=== PATIENT | female | born 1960 | race Caucasian/White ===

== ENCOUNTER 2019-06-16 15:25 | Inpatient (IN) ==
[2019-06-16] MEDS ORDERED: MORPHINE 4 MG/ML VIAL IVP STA (15:35)
[2019-06-16] MEDS ORDERED: ZOFRAN 4 MG/2 ML IVP STA (15:35)
--- NOTE | 2019-06-16 16:24 | DI ---
EXAM: CHEST FRONTAL AND LATERAL VIEWS HISTORY: Cough. COMPARISON: 12/08/2013 FINDINGS: Heart size and mediastinal contour remain within normal limits. No acute infiltrates. Normal vascularity with no pleural fluid or pneumothorax. The bony thorax has no acute finding. IMPRESSION: No current convincing evidence of pneumonia.
--- NOTE | 2019-06-16 16:29 | US ---
EXAM: Ultrasound abdomen limited right upper quadrant HISTORY: Abdominal pain, nausea, vomiting COMPARISON: None TECHNIQUE: Limited ultrasound abdomen right upper quadrant was performed FINDINGS: Visualized portion pancreas appears normal. Portions of the pancreas obscured secondary b owel gas shadowing. Liver normal in size and echogenicity. Main portal vein patent with normal dire ction of flow. No shadowing gallstones. No gallbladder wall thickening. No pericholecystic fluid. No biliary duct dilation with common bile duct measuring 0.3 cm. IMPRESSION: No abnormality identified in the liver, gallbladder, or biliary system.
--- NOTE | 2019-06-16 16:35 | CT ---
EXAM: CT abdomen pelvis without contra HISTORY: Abdominal pain COMPARISON: None TECHNIQUE: CT abdomen pelvis performed without intravenous contrast. Coronal and sagittal reformatt ed images obtained. FINDINGS: Mild bibasilar subsegmental atelectasis and/or scarring. No free air. No acute abnormali ties of the bones. Interbody spacer [id number]. Multilevel chronic discogenic degenerative disease with multifocal endplate sclerosis that is likely degenerative. Heart normal in size. Bilateral breast i mplants are incompletely imaged. Evaluation organ parenchyma limited without contrast. Liver unrema rkable. Gallbladder unremarkable. Calcifications in the pancreatic head region. Peripancreatic inf lammation. No focal drainable collection. Spleen unremarkable. Adrenals unremarkable. No hydronep hrosis or nephrolithiasis. No calculi visualized in normal course of the ureters. Bladder unremarka ble. Aorta normal in caliber. Mild atherosclerosis. 5.2 cm cystic lesion in the left adnexa. Smal l hiatal hernia. No dilated loops small bowel. Appendix appears normal. Colon unremarkable. IMPRESSION: 1. Acute on chronic pancreatitis. No focal drainable collection. 2. Unexpected findin.2 cm cystic lesion in the left ovary/adnexa. This is suspicious for ovari an neoplasm in a patient of this age. Recommend correlation with transabdominal and transvaginal pel wilfrid ultrasound as next step in evaluation
--- NOTE | 2019-06-16 16:54 | ED.PDOC ---
General ED Provider: Dr. ONDINA MILLER Chief Complaint: Abdominal Pain Stated Complaint: epigastric abdominal Time Seen by Physician: 15:30 Mode of Arrival: Ambulance Information Source: Patient Exam Limitations: No limitations Primary Care Provider: JESUS WALDEN Nursing and Triage Documentation Reviewed and Agree: Yes Does patient meet sepsis criteria?: No System Inflammatory Response Syndrome: Not Applicable Sepsis Protocol: For patient's 13 years and over: Temp is 96.8 and below OR 101 and greater Pulse >90 BPM Resp >20/minute Acutely Altered Mental Status Are patient's symptoms suggestive of a new infection, such as: -Pneumonia -Skin, Soft Tissue -Endocarditis -UTI -Bone, Joint Infection -Implantable Device -Acute Abdominal Infection -Wound Infection -Meningitis -Blood Stream Catheter Infection -Unknown GI Complaint Exam Abdominal Pain Complaint/Exam Onset: Gradual Duration: 1 DAY Symptoms Are: Still present Timing: Constant Initial Severity: Moderate Current Severity: Moderate Location of Pain: RUQ and Epigastric Radiates To: Denies Chest, Back, Flank, LLQ, RLQ and Inguinal Character: Reports Cramping Aggravating: Reports None Alleviating: Reports None and Medication (MORPHINE); Denies Spontaneous resolution and Vomiting Associated Signs and Symptoms: Reports Nausea and Vomiting; Denies Fever, Cough, Chest pain, Dizziness, Back pain and Constipation Ovarian Torsion Risk Factors: Reports Ovarian cysts (POSSIBLE NEOPLASM) Surgical Obstruction Risk Factors: Reports None Related Surgical History: Reports None Patient Rh Status: Unknown Abdominal Findings: Present Other (PAIN) Differential Diagnoses: Appendicitis, Diverticulitis, Pancreatitis, Irritable Bowel Syndrome, Pneumonia and Renal Colic Quality Indicators for AMI: EKG in 10min. Quality Indicators for Cardiac Chest Pain: EKG in 10min. Quality Indicator For Non-Traumatic Chest Pain/Syncope: EKG Performed Review of Systems Review Of Systems Constitutional: Reports No symptoms Eyes: Reports No symptoms Ears, Nose, Mouth, Throat: Reports No symptoms Respiratory: Reports No symptoms Cardiac: Reports No symptoms GI: Reports Abdominal pain, Poor appetite and Vomiting : Reports No symptoms Musculoskeletal: Reports No symptoms Skin: Reports No symptoms Neurological: Reports No symptoms Endocrine: Reports No symptoms Hematologic/Lymphatic: Reports No symptoms All Other Systems: Reviewed and Negative [facility] Medical History (Updated 06/16/19 @ 17:14 by ONDINA MILLER MD) Hypertension Social History (Updated 06/16/19 @ 16:24 by ROXY LEE RN) Smoking and tobacco status: Current every day smoker Tobacco type: cigarettes Smoking packs per day: 6 Smoking cigarettes per day: 120.0 Alcohol intake: current Alcohol intake frequency: a few times a week Physical Exam Physical Exam Appearance: Ill-appearing GI/: No masses (TENDER EPIGASTRIC) Interpretation Radiology Interpretation Radiology Interpretation By: Radiologist Radiology Results: Positive (PANCRATITIS, OVARAIAN MASS ) Physician Notification Case Discussed Physician Notified: PMD Time of Notification: 17:13 (ADMITT/NPO) Critical Care Note Critical Care Note Total Time (mins): 0 Course Course Hematology/Chemistry: 06/16/19 15:20 06/16/19 15:20 Orders, Labs, Meds: Lab Review 06/16/19 06/16/19 15:20 15:20 WBC 10.91 H RBC 4.03 L Hgb 14.2 Hct 40.4 MCV 100.2 H MCH 35.2 H MCHC 35.1 RDW Coeff of Briseyda 12.8 Plt Count 324 Immature Gran % (Auto) 0.3 Neut % (Auto) 84.5 Lymph % (Auto) 10.1 Den[place] % (Auto) 4.4 Eos % (Auto) 0.4 Baso % (Auto) 0.3 Immature Gran # (Auto) 0.0 Neut # (Auto) 9.2 H Lymph # (Auto) 1.1 Den[place] # (Auto) 0.5 Eos # (Auto) 0.0 Baso # (Auto) 0.0 Sodium 133.6 L Potassium 3.24 L Chloride 96.0 L Carbon Dioxide 27.3 Anion Gap 13.54 BUN 13.0 Creatinine 0.70 Estimated GFR (MDRD) 86.00 BUN/Creatinine Ratio 18.57 Glucose 116.3 H Calcium 9.95 Total Bilirubin 0.85 AST 27.6 ALT 18.2 Alkaline Phosphatase 72.8 Total Creatine Kinase 31.4 Troponin I < 0.012 Total Protein 8.12 Albumin 4.52 Globulin 3.60 Albumin/Globulin Ratio 1.25 Amylase 2979.2 H* Orders Category Date Time Status EKG-(ED ONLY) Stat CARDIO 06/16/19 15:34 Completed ACTIVITY .BR with BRP CARE 06/16/19 17:07 Ordered INTAKE & OUTPUT Q8HR CARE 06/16/19 17:07 Ordered NPO REMINDER: IMAGING ONCE CARE 06/16/19 15:33 Active NPO REMINDER: LAB TEST ONCE CARE 06/16/19 16:53 Active VITAL SIGNS Q4HR CARE 06/16/19 17:07 Ordered NOTHING BY MOUTH DIETARY 06/16/19 Dinner Ordered ED NEUROLOGICAL CHECKS .ONCE EMERGENCY 06/16/19 17:02 Ordered AMYLASE Stat LAB 06/16/19 15:20 Completed CBC W/ AUTO DIFF DAILY@0600 LAB 06/17/19 06:00 Ordered CBC W/ AUTO DIFF DAILY@0600 LAB 06/18/19 06:00 Ordered CBC W/ AUTO DIFF Stat LAB 06/16/19 15:20 Completed COMPREHENSIVE METABOLIC PANEL DAILY@0600 LAB 06/17/19 06:00 Ordered COMPREHENSIVE METABOLIC PANEL DAILY@0600 LAB 06/18/19 06:00 Ordered COMPREHENSIVE METABOLIC PANEL Stat LAB 06/16/19 15:20 Completed CREATINE KINASE Stat LAB 06/16/19 15:20 Completed LIPASE Stat LAB 06/16/19 17:06 Ordered LIPID PANEL Stat LAB 06/16/19 15:20 Received TROPONIN I Stat LAB 06/16/19 15:20 Completed URINALYSIS C & S IF INDICATED Stat LAB 06/16/19 15:34 Uncollected BANANA NS WITH 20KCL@125 MLS/HR(1,011.2ml) MEDS 06/16/19 17:00 Ordered Potassium Chloride in 0.9%NaCl [Sodium Chloride 0.9%- KCl 20 Meq] 1,000 ml Folic Acid 1 mg Vitamin B-1 Inj [Thiamine] 100 mg Mvi, Adult No.1 with Vit K [Infuvite Adult] 10 ml IV 125 mls/hr Citalopram Hydrobromide [Celexa] MEDS 06/17/19 09:00 Ordered 20 mg PO DAILY Clonazepam [Klonopin] MEDS 06/17/19 09:00 Ordered 1 mg PO DAILY Diazepam [Valium] MEDS 06/16/19 17:00 Stat 5 mg PO ONCE STA Diazepam [Valium] MEDS 06/16/19 17:00 Ordered 5 mg PO Q8H PRN Ipratropium/Albuterol Sulfate [Combivent Respimat Inhal MEDS 06/16/19 21:00 Ordered [place]] 4 gm IH QID Morphine Sulfate [Morphine 2 mg/ml Syringe] MEDS 06/16/19 17:05 Ordered 2 mg IVP Q6H PRN Morphine Sulfate [Morphine 4 mg/ml Vial] MEDS 06/16/19 15:35 Discontinued 4 mg IVP ONCE STA Ondansetron HCl/Pf [Zofran 4 mg/2 ml] MEDS 06/16/19 15:35 Discontinued 4 mg IVP ONCE STA Ondansetron HCl/Pf [Zofran 4 mg/2 ml] MEDS 06/16/19 17:05 Ordered 4 mg IVP Q6H PRN Trazodone HCl [Desyrel] MEDS 06/16/19 21:00 Ordered 150 mg PO BEDTIME lisinopril-hydrochlorothiazide [Zestoretic] MEDS 06/17/19 09:00 Ordered 1 tab PO DAILY CHEST, 2 VIEWS PA & LAT Stat RADS 06/16/19 15:[address] ABDOMEN/PELVIS WO CONTRAST Stat RADS 06/16/19 15:36 Completed U/S ABDOMEN, RT. UPPER QUAD Stat RADS 06/16/19 15:33 Completed Medications Generic Name Dose Route Start Last Admin Trade Name Freq PRN Reason Stop Dose Admin Albuterol/Ipratropium spray 06/16/19 21:00 Combivent Respimat Inhal [place] IH QID ASHELY Citalopram Hydrobromide 20 mg 06/17/19 09:00 Celexa PO DAILY ASHELY Clonazepam 1 mg 06/17/19 09:00 Klonopin PO DAILY ASHELY Diazepam 5 mg 06/16/19 17:00 Valium PO Q8H PRN Anxiety Folic Acid 1 mg/ Thiamine HCl 1,011.2 mls @ 125 mls/hr 06/16/19 17:00 100 mg/ Multivitamins/Minerals IV 10 ml/ Potassium Chloride/ .Q8H6M ASHELY Sodium Chloride Morphine Sulfate 2 mg 06/16/19 17:05 Morphine 2 Mg/Ml Syringe IVP Q6H PRN Pain Non-Formulary Medication 1 tab 06/17/19 09:00 Lisinopril-Hydrochlorothiazide [Zestoretic] PO DAILY ASHELY Ondansetron HCl 4 mg 06/16/19 17:05 Zofran 4 Mg/2 Ml IVP Q6H PRN Nausea / Vomiting Trazodone HCl 150 mg 06/16/19 21:00 Desyrel PO BEDTIME ASHELY Discontinued Medications Generic Name Dose Route Start Last Admin Trade Name Freq PRN Reason Stop Dose Admin Diazepam 5 mg 06/16/19 17:00 Valium PO 06/16/19 17:01 ONCE STA Morphine Sulfate 4 mg 06/16/19 15:35 06/16/19 15:48 Morphine 4 Mg/Ml Vial IVP 06/16/19 15:36 4 mg ONCE STA Administration Ondansetron HCl 4 mg 06/16/19 15:35 06/16/19 15:48 Zofran 4 Mg/2 Ml IVP 06/16/19 15:36 4 mg ONCE STA Administration Vital Signs: Temp Pulse Resp BP Pulse Ox 06/16/19 15:26 97.2 F L 51 L 16 122/63 98 Discharge Plan Discharge Patient Disposition: ADMITTED INPATIENT Discharge Problem: Abdominal pain, Acute pancreatitis Prescriptions: No Action clonazepam [Klonopin] 1 MG tablet 1 mg PO DAILY RF: 0 fexofenadine [Pita Allergy] 180 MG tablet 180 mg PO DAILY RF: 0 hydrocortisone acetate [Anusol-HC] 25 MG suppository 25 mg [place] PRN PRN (Reason: hemmoriod) RF: 0 citalopram 20 MG tablet 20 mg PO DAILY RF: 0 esomeprazole magnesium [Nexium] 40 MG capsule,delayed release(DR/EC) 40 mg PO DAILY RF: 0 lisinopril-hydrochlorothiazide [Zestoretic] 1 EACH tablet 1 tab PO DAILY RF: 0 epinephrine [EpiPen 2-[place]] 0.3 MG/0.3 ML auto-injector 0.3 mg IM PRN PRN (Reason: Anaphylaxis) RF: 0 rosuvastatin [Crestor] 10 MG tablet 10 mg PO DAILY RF: 0 B-100 Complex 100 MG tablet extended release 100 mg IM MONTHLY PRN (Reason: anemia) RF: 0 Combivent Respimat 4 GM mist 4 g inhalation QID RF: 0 trazodone 150 mg Tablet 150 mg PO BEDTIME RF: 0 ED Provider: ONDINA MILLER Condition: Good
[2019-06-16] MEDS ORDERED: VALIUM PO PRN (17:00)
[2019-06-16] MEDS ORDERED: VALIUM PO STA (17:00)
[2019-06-16] MEDS ORDERED: MORPHINE 2 MG/ML SYRINGE IVP PRN (17:05)
[2019-06-16] MEDS ORDERED: FOLIC ACID ONE ×2 (17:10→17:25)
[2019-06-16] MEDS ORDERED: THIAMINE ONE ×2 (17:10→18:12)
[2019-06-16] MEDS ORDERED: INFUVITE ADULT IV ONE (17:11)
[2019-06-16] MEDS: FOLIC ACID 1 MG, THIAMINE 100 MG, INFUVITE ADULT 10 ML in SODIUM CHLORIDE 0.9%-KCL 20 M... IV SCH (17:39)
[2019-06-16 18:03] VITALS: BMI 31.4
[2019-06-16] MEDS: ZOFRAN 4 MG/2 ML IVP PRN (18:14)
[2019-06-16] MEDS: DESYREL PO SCH (20:38)
[2019-06-16] MEDS ORDERED: COMBIVENT RESPIMAT INHAL SPRAY IH SCH (21:00)
[2019-06-16] MEDS: DILAUDID 1 MG/ML SYRINGE IVP PRN (23:04)
[2019-06-17] MEDS ORDERED: THIAMINE ONE ×5 (01:05→16:39)
[2019-06-17] MEDS ORDERED: INFUVITE ADULT IV ONE ×3 (01:05→16:40)
[2019-06-17] MEDS: DILAUDID 1 MG/ML SYRINGE IVP PRN ×4 (01:12→20:26)
[2019-06-17] MEDS: FOLIC ACID 1 MG, THIAMINE 100 MG, INFUVITE ADULT 10 ML in SODIUM CHLORIDE 0.9%-KCL 20 M... IV SCH ×3 (01:14→17:57)
[2019-06-17] MEDS ORDERED: LISINOPRIL HYDROCHLOROTHIAZIDE PO SCH (09:00)
[2019-06-17] MEDS ORDERED: FOLIC ACID ONE ×2 (09:10→16:38)
[2019-06-17] MEDS: COMBIVENT RESPIMAT INHAL SPRAY IH SCH ×4 (10:47→20:23)
[2019-06-17] MEDS: KLONOPIN PO SCH (11:04)
[2019-06-17] MEDS: ZESTORETIC 20-12.5 MG TAB PO SCH (11:05)
[2019-06-17] MEDS: HYDROCHLOROTHIAZIDE PO SCH (11:05)
[2019-06-17] MEDS: CELEXA PO SCH (11:06)
[2019-06-17] MEDS: LEVAQUIN 500 MG/100 ML D5W 500 MG/100 ML BAG IV SCH (11:07)
--- NOTE | 2019-06-17 11:16 | US ---
EXAM: PELVIC ULTRASOUND COMPLETE HISTORY: Left adnexal mass seen on CT FINDINGS: Ultrasound pelvis transvaginal. Transvaginal approach imaging was performed for improved resolution and anatomic definition. The uterus measured 6.8 x 3.2 x 3.0 centimeters. Myometrium was unremarkable. Endometrial stripe wa s symmetric and normal thickness at 0.48 centimeters. There is a 4.8 x 3.8 x 4.4 cm left adnexal mass. The mass is complex and cannot exclude the mass con sisting of some solid components. The origin of the mass could be the ovary. No right ovary was see n. Small amount of pelvic ascites IMPRESSION: 1. Indeterminate left adnexal mass. Correlation with pelvic MRI is recommended. 2. Endometrium and uterus were within normal limits. 3. Small amount of pelvic ascites.
[2019-06-17] MEDS: ZOFRAN 4 MG/2 ML IVP PRN (11:33)
[2019-06-17] MEDS: DESYREL PO SCH (20:24)
[2019-06-18] MEDS: DILAUDID 1 MG/ML SYRINGE IVP PRN ×3 (00:46→15:23)
[2019-06-18] MEDS ORDERED: THIAMINE ONE ×2 (01:28→15:01)
[2019-06-18] MEDS ORDERED: INFUVITE ADULT IV ONE ×2 (01:30→15:04)
[2019-06-18] MEDS ORDERED: FOLIC ACID ONE ×2 (01:30→15:03)
[2019-06-18] MEDS: FOLIC ACID 1 MG, THIAMINE 100 MG, INFUVITE ADULT 10 ML in SODIUM CHLORIDE 0.9%-KCL 20 M... IV SCH ×2 (02:29→12:53)
[2019-06-18] MEDS: KLONOPIN PO SCH (09:20)
[2019-06-18] MEDS: CELEXA PO SCH (09:20)
[2019-06-18] MEDS: ZESTORETIC 20-12.5 MG TAB PO SCH (09:21)
[2019-06-18] MEDS: HYDROCHLOROTHIAZIDE PO SCH (09:22)
[2019-06-18] MEDS: COMBIVENT RESPIMAT INHAL SPRAY IH SCH ×4 (09:30→20:46)
[2019-06-18] MEDS: LEVAQUIN 500 MG/100 ML D5W 500 MG/100 ML BAG IV SCH (11:07)
[2019-06-18] MEDS ORDERED: FOLIC ACID 1 MG, THIAMINE 100 MG, INFUVITE ADULT 10 ML in SODIUM CHLORIDE 0.9%-KCL 20 M... IV SCH (12:36)
[2019-06-18] MEDS: ZOFRAN 4 MG/2 ML IVP PRN (15:24)
[2019-06-18] MEDS ORDERED: TYLENOL PO PRN (18:31)
[2019-06-18] MEDS: DESYREL PO SCH (20:44)
[2019-06-18 22:32] VITALS: TEMP 97.8
[2019-06-19 05:12] VITALS: BP 126/76
[2019-06-19] MEDS: CELEXA PO SCH (08:46)
[2019-06-19] MEDS: LEVAQUIN 500 MG/100 ML D5W 500 MG/100 ML BAG IV SCH (08:46)
[2019-06-19] MEDS: ZESTORETIC 20-12.5 MG TAB PO SCH (08:46)
[2019-06-19] MEDS: KLONOPIN PO SCH (08:46)
[2019-06-19] MEDS: HYDROCHLOROTHIAZIDE PO SCH (08:47)
[2019-06-19] MEDS: COMBIVENT RESPIMAT INHAL SPRAY IH SCH (09:04)
--- NOTE | 2019-06-29 11:35 | HP ---
CHIEF COMPLAINT: "I am hurting." DISCUSSION: 59-year-old lady who presented to the Emergency Department with severe abdominal pain and nausea. She does note the history of alcohol use. She was seen in the Emergency Department by Dr. Odom where laboratory revealed evidence of elevated amylase and lipase. CT scan revealed evidence of pancreatic inflammation as well as ovarian mass. Her abdominal pain was felt to be secondary to acute pancreatitis and she was admitted to my services for pain control and NPO status. PAST MEDICAL HISTORY: MEDICATIONS: Klonopin Celexa Nexium Zestoretic Crestor Combivent inhaler Trazodone ALLERGIES: PENICILLINS, VENON WASP PAST MEDICAL HISTORY: History of anxiety History of GERD Hypertension Hyperlipidemia Chronic insomnia SOCIAL HISTORY: She is a one pack per day smoker, uses alcohol socially. FAMILY HISTORY: Positive for hypertension. REVIEW OF SYSTEMS: Denies headaches, visual changes, tinnitus, chest pain, hemoptysis, blood in the stool, urinary symptoms or seizures. PHYSICAL EXAMINATION: V/S: Temperature 97.6, pulse 80, respirations 18, BP 120/80. HEENT: Pupils are round. NECK: Supple. CHEST: Clear. CARDIOVASCULAR: Regular rate and rhythm. ABDOMEN: Soft, nontender. EXTREMITIES: Distal extremities without cyanosis or edema. ASSESSMENT: 1. ACUTE PANCREATITIS PLAN: 1. NPO. 2. IV fluids. 3. DT precautions. 4. Will order ovarian ultrasound. 5. Please see orders. MTDD
--- NOTE | 2019-06-29 11:40 | DS ---
PRINCIPAL DIAGNOSIS: 1. ACUTE PANCREATITIS PROBABLY SECONDARY TO ALCOHOL USE 2. OVARIAN MASS DISCUSSION: This is a 59-year-old lady who was admitted through the Emergency Department with severe abdominal pain with nausea. Laboratory evidence revealed evidence of elevated amylase and lipase. CT scan revealed pancreatic inflammation. The patient was admitted to my services. Pain control was established. Her amylase and lipase returned to normal. Her diet was advanced, she tolerated this well. CT scan also revealed evidence of a pelvic mass. Ultrasound confirmed an ovarian mass and this will be followed up as an outpatient. At time of discharge, the patient was afebrile tolerating a regular diet without significant abdominal pain. The patient was discharged with medications indicated on reconciliation list. She will call my office tomorrow to schedule an appointment with her leather parts matcher. Will see her in one week. DANICA
== END 2019-06-19 10:45 | disposition home or self-care (01) | DRG 440 ==
LOC: ED 15:25 → MEDSURG B 17:10
PROVIDERS: ADMIT Family Medicine; ATTEND Family Medicine
DX: K85.90 Acute pancreatitis without necrosis or infection, unspecified; R10.9 Unspecified abdominal pain; R19.00 Intra-abdominal and pelvic swelling, mass and lump, unspecified site; R63.0 Anorexia; Z23 Encounter for immunization; R11.2 Nausea with vomiting, unspecified